=== PATIENT | male | born 1965 ===

== ENCOUNTER 2021-02-20 17:05 | Emergency (ER) | payer SELFPAY ==
[~2021-02-20] VITALS: Ht 185.4 cm; Wt 113.1 kg
[2021-02-20 17:34] VITALS: BP 124/73
[2021-02-20] MEDS ORDERED: SULFAMETH./TRIMETHOPRIM DS 800MG/160MG TABLET PO ONE (18:30)
[2021-02-20] MEDS ORDERED: SULFAMETH./TRIMETHOPRIM DS 800MG/160MG TABLET ONE (18:35)
== END 2021-02-20 20:25 | disposition home or self-care (01) ==
LOC: ED 20:00
DX: L03.115 Cellulitis of right lower limb (principal); L03.116 Cellulitis of left lower limb
CPT/HCPCS: 82962; 99283

== ENCOUNTER 2021-03-01 06:35 | Emergency (ER) | payer SELFPAY ==
[~2021-03-01] VITALS: Ht 188 cm; Wt 116.3 kg
[2021-03-01 06:37] VITALS: BP 106/70
== END 2021-03-01 07:17 | disposition home or self-care (01) ==
LOC: ED 06:45
DX: L03.115 Cellulitis of right lower limb (principal); L03.116 Cellulitis of left lower limb; B86 Scabies; E11.9 Type 2 diabetes mellitus without complications; F17.200 Nicotine dependence, unspecified, uncomplicated
CPT/HCPCS: 99283

== ENCOUNTER 2021-03-02 21:30 | Emergency (ER) | payer SELFPAY ==
[~2021-03-02] VITALS: Ht 188 cm; Wt 114.7 kg
[2021-03-02 21:39] VITALS: BP 117/67
[2021-03-02] MEDS ORDERED: SODIUM CHLORIDE 0.9% 1,000ML IVBOLUS ONE (23:00)
--- NOTE | 2021-03-02 23:53 | NUR ---
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
== END 2021-03-02 23:55 | disposition left against medical advice (07) ==
LOC: ED 22:00
DX: M79.671 Pain in right foot (principal); M79.672 Pain in left foot; Z53.21 Procedure and treatment not carried out due to patient leaving prior to being seen by health care provider
CPT/HCPCS: 93970

== ENCOUNTER 2021-03-07 12:43 | Inpatient (IN) | payer OTHER ==
[~2021-03-07] VITALS: Ht 182.9 cm; Wt 106.6 kg
--- NOTE | 2021-03-07 13:46 | NUR ---
pt to rm from lobby
[2021-03-07] MEDS ORDERED: AMPICILLIN/SULBACTAM 3 GM in SODIUM CHLORIDE 0.9% 100 ML IV ONE (14:00)
[2021-03-07] MEDS ORDERED: VANCOMYCIN PER PHARMACY MC PRN ×2 (14:00→20:00)
[2021-03-07] MEDS ORDERED: SODIUM CHLORIDE 0.9% 1,000ML IVBOLUS ONE (14:00)
[2021-03-07] MEDS ORDERED: VANCOMYCIN 2,500 MG in SODIUM CHLORIDE 0.9% 500 ML IV ONE (14:30)
[2021-03-07 14:58] LABS: ALANINE AMINOTRANSFERASE 25 U/L (12-78); ALBUMIN 2.2 g/dL (3.4-5.0); ANION GAP 6 mmol/L (5-15); CALCIUM 8.7 mg/dL (8.5-10.1); CHLORIDE 99 mmol/L (98-107); CREATININE 0.88 mg/dL (0.7-1.3)
[2021-03-07 15:01] LABS: ALKALINE PHOSPHATASE 80 U/L (45-117); BILIRUBIN,TOTAL 0.4 mg/dL (0.2-1.0); TOTAL PROTEIN 9.3 g/dL (6.4-8.2)
[2021-03-07 15:56] LABS: BASOPHILS % (AUTO) 1 % (0-1); EOSINOPHILS % (AUTO) 3 % (1-7); LYMPHOCYTES % (AUTO) 7 % (22-44); MEAN CORPUSCULAR HEMOGLOBIN 28.7 pg (27.5-34.5); MEAN CORPUSCULAR HGB CONC 32.8 g/dL (33.2-36.2); MEAN PLATELET VOLUME 8.9 fL (7.4-10.4); MONOCYTES % (AUTO) 8 % (2-9); NEUTROPHILS % (AUTO) 82 % (42-75); RED BLOOD COUNT 3.78 x10^6/uL (4.38-5.82); RED CELL DISTRIBUTION WIDTH 14.3 % (9.4-14.8)
[2021-03-07 16:54] LABS: PLATELET COUNT 286 x10^3/uL (130-400)
--- NOTE | 2021-03-07 19:04 | NUR ---
Report from Stoney PEÑA
[2021-03-07] MEDS ORDERED: ONDANSETRON 2MG/ML, 2ML IVPush PRN (20:00)
[2021-03-07] MEDS ORDERED: ACETAMINOPHEN 325 MG TABLET PO PRN (20:00)
[2021-03-07] MEDS ORDERED: OXYcodone IR 5MG TABLET PO PRN (20:00)
[2021-03-07] MEDS ORDERED: LABETALOL 5MG/ML, 20ML IVPush PRN (20:00)
[2021-03-07] MEDS ORDERED: POLYETHYLENE GLYCOL 17 GM PACKET PO PRN (20:00)
--- NOTE | 2021-03-07 20:27 | NUR ---
Report to Teresa PEÑA
[2021-03-07] MEDS ORDERED: PHARMACOKINETIC MONITORING MC PRN (20:30)
[2021-03-07] MEDS ORDERED: PHARMACOKINETIC CONSULTATION MC ONE (20:30)
[2021-03-07] MEDS ORDERED: MELATONIN 5 MG TABLET PO PRN (21:00)
[2021-03-07 21:38] VITALS: BP 96/55
[2021-03-07] MEDS: AMPICILLIN/SULBACTAM 3 GM in SODIUM CHLORIDE 0.9% 100 ML IV SCH (23:08)
[2021-03-07] MEDS: ENOXAPARIN 40 MG/0.4 ML SQ SCH (23:08)
[2021-03-07 23:32] LABS: AMPHETAMINE SCREEN, URINE Negative (Negative); BARBITURATE SCREEN, URINE Negative (Negative); BENZODIAZEPINE SCREEN, URINE Negative (Negative); CANNABINOID SCREEN, URINE Negative (Negative); COCAINE SCREEN, URINE Negative (Negative); METHADONE SCREEN, URINE Negative (Negative); OPIATE SCREEN, URINE Negative (Negative)
[2021-03-08 01:34] VITALS: BP 115/76
[2021-03-08] MEDS: VANCOMYCIN 1,900 MG in SODIUM CHLORIDE 0.9% 250 ML IV SCH ×2 (04:04→17:07)
[2021-03-08] MEDS: AMPICILLIN/SULBACTAM 3 GM in SODIUM CHLORIDE 0.9% 100 ML IV SCH ×3 (05:33→19:31)
[2021-03-08 06:08] LABS: ANION GAP 8 mmol/L (5-15); CALCIUM 8.1 mg/dL (8.5-10.1); CHLORIDE 103 mmol/L (98-107); CREATININE 0.79 mg/dL (0.7-1.3)
[2021-03-08 08:51] LABS: BASOPHILS % (AUTO) 0 % (0-1); EOSINOPHILS % (AUTO) 3 % (1-7); LYMPHOCYTES % (AUTO) 10 % (22-44); MEAN CORPUSCULAR HEMOGLOBIN 29.1 pg (27.5-34.5); MEAN CORPUSCULAR HGB CONC 33.3 g/dL (33.2-36.2); MEAN PLATELET VOLUME 8.4 fL (7.4-10.4); MONOCYTES % (AUTO) 9 % (2-9); NEUTROPHILS % (AUTO) 77 % (42-75); PLATELET COUNT 273 x10^3/uL (130-400); RED BLOOD COUNT 3.96 x10^6/uL (4.38-5.82); RED CELL DISTRIBUTION WIDTH 14.6 % (9.4-14.8)
[2021-03-08 10:24] VITALS: BP 94/58
[2021-03-08] MEDS ORDERED: PERMETHRIN CRM 5%, 60GM TP SCH (11:30)
[2021-03-08 13:56] VITALS: BP 98/60
[2021-03-08] MEDS: MUPIROCIN OINT 2%, 22GM TP SCH (17:16)
[2021-03-08 19:33] VITALS: BP 106/65
[2021-03-09] MEDS: ENOXAPARIN 40 MG/0.4 ML SQ SCH ×2 (00:06→23:20)
[2021-03-09 00:07] VITALS: BP 103/71
[2021-03-09] MEDS: AMPICILLIN/SULBACTAM 3 GM in SODIUM CHLORIDE 0.9% 100 ML IV SCH ×4 (01:13→22:01)
[2021-03-09 03:13] LABS: ANION GAP 7 mmol/L (5-15); CALCIUM 8.2 mg/dL (8.5-10.1); CHLORIDE 104 mmol/L (98-107); CREATININE 0.79 mg/dL (0.7-1.3)
[2021-03-09 03:14] LABS: VANCOMYCIN,TROUGH 13.9 mcg/mL (5.0-10.0)
[2021-03-09] MEDS: VANCOMYCIN 1,900 MG in SODIUM CHLORIDE 0.9% 250 ML IV SCH (04:00)
[2021-03-09 06:23] LABS: BASOPHILS % (AUTO) 1 % (0-1); EOSINOPHILS % (AUTO) 5 % (1-7); LYMPHOCYTES % (AUTO) 12 % (22-44); MEAN CORPUSCULAR HEMOGLOBIN 29.3 pg (27.5-34.5); MEAN CORPUSCULAR HGB CONC 33.5 g/dL (33.2-36.2); MEAN PLATELET VOLUME 7.5 fL (7.4-10.4); MONOCYTES % (AUTO) 10 % (2-9); NEUTROPHILS % (AUTO) 72 % (42-75); PLATELET COUNT 367 x10^3/uL (130-400); RED BLOOD COUNT 3.87 x10^6/uL (4.38-5.82); RED CELL DISTRIBUTION WIDTH 14.6 % (9.4-14.8)
[2021-03-09] MEDS: MUPIROCIN OINT 2%, 22GM TP SCH ×2 (06:32→18:17)
[2021-03-09 09:18] VITALS: BP 114/70
[2021-03-09 12:06] VITALS: BP 118/78
[2021-03-09] MEDS: VANCOMYCIN 2,200 MG in SODIUM CHLORIDE 0.9% 500 ML IV SCH (14:39)
[2021-03-09 18:58] VITALS: BP 131/80
[2021-03-10 01:38] VITALS: BP 114/65
[2021-03-10] MEDS: VANCOMYCIN 2,200 MG in SODIUM CHLORIDE 0.9% 500 ML IV SCH ×2 (02:16→13:56)
[2021-03-10] MEDS: AMPICILLIN/SULBACTAM 3 GM in SODIUM CHLORIDE 0.9% 100 ML IV SCH ×4 (04:50→22:43)
[2021-03-10 06:09] LABS: BASOPHILS % (AUTO) 1 % (0-1); EOSINOPHILS % (AUTO) 6 % (1-7); LYMPHOCYTES % (AUTO) 16 % (22-44); MEAN CORPUSCULAR HEMOGLOBIN 28.5 pg (27.5-34.5); MEAN CORPUSCULAR HGB CONC 32.5 g/dL (33.2-36.2); MEAN PLATELET VOLUME 8.8 fL (7.4-10.4); MONOCYTES % (AUTO) 11 % (2-9); NEUTROPHILS % (AUTO) 67 % (42-75); PLATELET COUNT 281 x10^3/uL (130-400); RED BLOOD COUNT 4.18 x10^6/uL (4.38-5.82); RED CELL DISTRIBUTION WIDTH 14.4 % (9.4-14.8)
[2021-03-10] MEDS: MUPIROCIN OINT 2%, 22GM TP SCH ×2 (06:12→18:04)
[2021-03-10 06:20] LABS: ANION GAP 3 mmol/L (5-15); CALCIUM 8.8 mg/dL (8.5-10.1); CHLORIDE 104 mmol/L (98-107)
[2021-03-10 06:21] LABS: CREATININE 0.94 mg/dL (0.7-1.3)
[2021-03-10 06:51] VITALS: BP 158/81
[2021-03-10 08:54] VITALS: BP 126/81
[2021-03-10 14:03] VITALS: BP 115/77
[2021-03-10 18:55] VITALS: BP 100/47
[2021-03-10] MEDS: ENOXAPARIN 40 MG/0.4 ML SQ SCH (22:42)
[2021-03-11] VITALS: BP 120/73
[2021-03-11 02:15] LABS: BASOPHILS % (AUTO) 1 % (0-1); EOSINOPHILS % (AUTO) 6 % (1-7); LYMPHOCYTES % (AUTO) 22 % (22-44); MEAN CORPUSCULAR HEMOGLOBIN 29.4 pg (27.5-34.5); MEAN CORPUSCULAR HGB CONC 33.7 g/dL (33.2-36.2); MEAN PLATELET VOLUME 7.3 fL (7.4-10.4); MONOCYTES % (AUTO) 8 % (2-9); NEUTROPHILS % (AUTO) 64 % (42-75); PLATELET COUNT 442 x10^3/uL (130-400); RED BLOOD COUNT 4.14 x10^6/uL (4.38-5.82); RED CELL DISTRIBUTION WIDTH 14.1 % (9.4-14.8)
[2021-03-11 02:25] LABS: ANION GAP 4 mmol/L (5-15); CALCIUM 8.7 mg/dL (8.5-10.1); CHLORIDE 104 mmol/L (98-107); CREATININE 0.84 mg/dL (0.7-1.3)
[2021-03-11] MEDS: VANCOMYCIN 2,200 MG in SODIUM CHLORIDE 0.9% 500 ML IV SCH (04:02)
[2021-03-11] MEDS: AMPICILLIN/SULBACTAM 3 GM in SODIUM CHLORIDE 0.9% 100 ML IV SCH ×3 (06:26→16:18)
[2021-03-11] MEDS: MUPIROCIN OINT 2%, 22GM TP SCH ×2 (06:26→16:26)
[2021-03-11 08:56] VITALS: BP 115/74
[2021-03-11 12:08] VITALS: BP 126/73
[2021-03-11] MEDS: VANCOMYCIN 2,000 MG in SODIUM CHLORIDE 0.9% 500 ML IV SCH (16:26)
[2021-03-11 19:19] VITALS: BP 111/76
[2021-03-11] MEDS: ENOXAPARIN 40 MG/0.4 ML SQ SCH (22:56)
[2021-03-12] MEDS: AMPICILLIN/SULBACTAM 3 GM in SODIUM CHLORIDE 0.9% 100 ML IV SCH ×4 (00:21→12:11)
[2021-03-12 02:47] VITALS: BP 110/71
[2021-03-12] MEDS: VANCOMYCIN 2,000 MG in SODIUM CHLORIDE 0.9% 500 ML IV SCH (04:14)
[2021-03-12] MEDS: MUPIROCIN OINT 2%, 22GM TP SCH (06:26)
[2021-03-12 09:25] VITALS: BP 118/78
[2021-03-12 09:33] LABS: BASOPHILS % (AUTO) 1 % (0-1); EOSINOPHILS % (AUTO) 7 % (1-7); LYMPHOCYTES % (AUTO) 20 % (22-44); MEAN CORPUSCULAR HEMOGLOBIN 29.9 pg (27.5-34.5); MEAN CORPUSCULAR HGB CONC 33.9 g/dL (33.2-36.2); MEAN PLATELET VOLUME 7.5 fL (7.4-10.4); MONOCYTES % (AUTO) 8 % (2-9); NEUTROPHILS % (AUTO) 64 % (42-75); PLATELET COUNT 441 x10^3/uL (130-400); RED BLOOD COUNT 4.14 x10^6/uL (4.38-5.82)
[2021-03-12 09:47] LABS: CREATININE 0.88 mg/dL (0.7-1.3)
[2021-03-12 09:54] LABS: ANION GAP 5 mmol/L (5-15); CHLORIDE 104 mmol/L (98-107)
[2021-03-12] MEDS ORDERED: AMOX1TAB64 PO (11:45)
[2021-03-12] MEDS ORDERED: MUPI22OI2 TP (11:47)
== END 2021-03-12 14:27 | disposition home or self-care (01) | DRG 603 ==
LOC: ED 14:01 → EDIP 19:02 → 3N 21:33
PROVIDERS: ADMIT Internal Medicine; ATTEND Internal Medicine
DX: L03.115 Cellulitis of right lower limb (principal); E87.1 Hypo-osmolality and hyponatremia; F19.10 Other psychoactive substance abuse, uncomplicated; L73.2 Hidradenitis suppurativa; E66.01 Morbid (severe) obesity due to excess calories; E11.9 Type 2 diabetes mellitus without complications; B85.1 Pediculosis due to Pediculus humanus corporis; Z68.33 Body mass index [BMI] 33.0-33.9, adult; Z59.0 Homelessness; Z79.899 Other long term (current) drug therapy
CPT/HCPCS: 36415; 80048; 80053; 80202; 80307; 83605; 83735; 84100; 85025; 86592; 87040; 87806; 93005; 96365; 99285; G0378; J0295; J1650; J3370; G0475; J7030; J7040; J7050

== ENCOUNTER 2021-03-28 10:42 | Emergency (ER) | payer SELFPAY ==
[~2021-03-28] VITALS: Ht 182.9 cm; Wt 111.4 kg
[~2021-03-28 10:42] MED LIST: AMOX1TAB64 PO; MUPI22OI2 TP
[2021-03-28 11:03] VITALS: BP 106/74
--- NOTE | 2021-03-28 11:17 | NUR ---
Patient given discharge instructions and Rx, they have confirmed that they understand the instructions. Patient ambulatory with steady gait.
== END 2021-03-28 11:18 | disposition home or self-care (01) ==
LOC: ED 11:15
DX: L03.116 Cellulitis of left lower limb (principal); E11.9 Type 2 diabetes mellitus without complications
CPT/HCPCS: 82962; 99283